=== PATIENT | female | born 1960 | race Caucasian/White ===

== ENCOUNTER → 2017-08-17 14:04 | Outpatient (CLI) | payer OTHER, SELFPAY ==
[2017-08-17 16:12] LABS: Absolute Lymphocyte Count 1.85 X10^3/ul (0.83-4.51); Absolute Neutrophil Count 4.6 X10^3/uL (2.0-7.7); Basophil# 0.08 X10^3/uL; Eosinophils% 7.7 % (0-5); Hematocrit 40.7 % (37-47); Hemoglobin 12.9 g/dl (12.0-15.0); Lymphocyte # 1.85 X10^3/ul (4.0); Lymphocyte % 23.9 % (19-41); Mean Corp Hgb Conc 31.7 g/gl (32-36); Mean Corpuscular Hgb 29.1 pg (27.0-32.0); Mean Corpuscular Volume 91.7 fL (81-99); Mean Platelet Vol. 11.1 fl (6.2-12.0); Monocyte% 7.7 % (0-10); Neutrophil # 4.61 X10^3/uL (2.7-7.7); Neutrophil % 59.6 % (47-70); Platelet Count 361 K/mm3 (150-450); RBC Distribution Width CV 13.4 % (11.6-14.6); Red Blood Count 4.44 M/mm3 (4.2-5.4); White Blood Count 7.8 K/mm3 (4.4-11.0)
[2017-08-17 16:13] LABS: POSITIVE COUNT NO; POSITIVE DIFFERENTIAL NO; POSITIVE MORPHOLOGY NO
[2017-08-17 16:35] LABS: AST(SGOT) 18 U/L (15-37); Alanine Aminotransfer ALT/SGPT 30 U/L (13-56); Albumin, Serum 4.1 g/dL (3.2-5.0); Alkaline Phosphatase 70 U/L (45-117); Anion Gap 7 (5-15); BUN 13 mg/dL (7-18); BUN/Creat Ratio 16.6 RATIO (10-20); Calcium,Total 8.9 mg/dL (8.5-10.1); Chloride 102 mmol/L (98-107); Creatinine, Serum 0.78 mg/dL (0.55-1.02); EST Glomerular Filtration Rate 80 mL/min (>60); Est Glom Filt Rate - Afr Amer 97 mL/min (>60); Globulin 4.2 g/dL (2.2-4.2); Glucose 85 mg/dL (74-106); Potassium 3.8 mmol/L (3.5-5.1); Protein, Total 8.3 g/dL (6.4-8.2); Sodium Level 138 mmol/L (136-145); Thyroid Stim Hormone (TSH) 2.31 uIU/mL (0.358-3.74)
[2017-08-19 11:31] LABS: Hep C Antibodies <0.1 s/co ratio (0.0-0.9)
== END ==
PROVIDERS: Family Provider Family Medicine Geriatric Medicine; PCP Family Medicine Geriatric Medicine; Visit Provider Family Medicine Geriatric Medicine
DX: Z00.00 Encounter for general adult medical examination without abnormal findings (principal)
CPT/HCPCS: 36415; 80053; 84443; 85025; 86803

== ENCOUNTER → 2018-02-28 10:09 | Outpatient (CLI) | payer SELFPAY ==
[2018-02-28 12:46] LABS: Absolute Lymphocyte Count 1.57 X10^3/ul (0.83-4.51); Absolute Neutrophil Count 4.2 X10^3/uL (2.0-7.7); Basophil# 0.07 X10^3/uL; Eosinophil# 0.41 X10^3/uL; Hematocrit 41.4 % (37-47); Hemoglobin 13.1 g/dl (12.0-15.0); Lymphocyte # 1.57 X10^3/ul (4.0); Lymphocyte % 23.1 % (19-41); Mean Corp Hgb Conc 31.6 g/gl (32-36); Mean Corpuscular Hgb 29.2 pg (27.0-32.0); Mean Corpuscular Volume 92.2 fL (81-99); Monocyte# 0.51 X10^3/uL; Monocyte% 7.5 % (0-10); Neutrophil # 4.24 X10^3/uL (2.7-7.7); Neutrophil % 62.4 % (47-70); POSITIVE COUNT NO; POSITIVE DIFFERENTIAL NO; POSITIVE MORPHOLOGY NO; Platelet Count 354 K/mm3 (150-450); RBC Distribution Width CV 13.4 % (11.6-14.6); RBC Distribution Width SD 44.8 fl (35.1-43.9); Red Blood Count 4.49 M/mm3 (4.2-5.4); White Blood Count 6.8 K/mm3 (4.4-11.0)
[2018-02-28 13:03] LABS: ALB/GLOB Ratio 0.9 RATIO (0.9-2.4); AST(SGOT) 20 U/L (15-37); Alanine Aminotransfer ALT/SGPT 36 U/L (13-56); Albumin, Serum 3.9 g/dL (3.2-5.0); Alkaline Phosphatase 69 U/L (45-117); Anion Gap 9 (5-15); BUN 13 mg/dL (7-18); BUN/Creat Ratio 17.3 RATIO (10-20); Calcium,Total 8.8 mg/dL (8.5-10.1); Chloride 102 mmol/L (98-107); Creatinine, Serum 0.75 mg/dL (0.55-1.02); EST Glomerular Filtration Rate 84 mL/min (>60); Est Glom Filt Rate - Afr Amer 102 mL/min (>60); Globulin 4.4 g/dL (2.2-4.2); Glucose 106 mg/dL (74-106); Potassium 3.7 mmol/L (3.5-5.1); Protein, Total 8.3 g/dL (6.4-8.2); Sodium Level 138 mmol/L (136-145); Thyroid Stim Hormone (TSH) 2.83 uIU/mL (0.358-3.74)
== END ==
PROVIDERS: Family Provider Family Medicine Geriatric Medicine; PCP Family Medicine Geriatric Medicine; Visit Provider Family Medicine Geriatric Medicine
DX: R53.83 Other fatigue (principal)
CPT/HCPCS: 36415; 80053; 84443; 85025

== ENCOUNTER → 2018-03-29 16:26 | Outpatient (CLI) | payer OTHER, SELFPAY ==
[2017-05-30 07:22] VITALS: BMI 34.4
== END ==
PROVIDERS: Family Provider Family Medicine Geriatric Medicine; PCP Family Medicine Geriatric Medicine; Referring Provider Family Medicine Geriatric Medicine; Visit Provider Family Medicine Geriatric Medicine
DX: R68.83 Chills (without fever) (principal)
CPT/HCPCS: 87633

== ENCOUNTER → 2018-09-05 15:31 | Outpatient (CLI) | payer OTHER, SELFPAY ==
[2017-05-30 07:22] VITALS: BMI 34.4
[2018-09-05 16:29] LABS: Absolute Lymphocyte Count 2.17 X10^3/ul (0.83-4.51); Absolute Neutrophil Count 3.5 X10^3/uL (2.0-7.7); Basophil# 0.11 X10^3/uL; Basophil% 1.6 % (0-1); Eosinophil# 0.46 X10^3/uL; Eosinophils% 6.8 % (0-5); Lymphocyte # 2.17 X10^3/ul (4.0); Lymphocyte % 32.1 % (19-41); Mean Corp Hgb Conc 32.5 g/gl (32-36); Mean Corpuscular Hgb 29.5 pg (27.0-32.0); Mean Corpuscular Volume 90.7 fL (81-99); Mean Platelet Vol. 10.8 fl (6.2-12.0); Monocyte# 0.55 X10^3/uL; Monocyte% 8.1 % (0-10); Neutrophil # 3.46 X10^3/uL (2.7-7.7); Neutrophil % 51.3 % (47-70); Platelet Count 335 K/mm3 (150-450); RBC Distribution Width CV 13.7 % (11.6-14.6); RBC Distribution Width SD 44.7 fl (35.1-43.9); Red Blood Count 4.41 M/mm3 (4.2-5.4); White Blood Count 6.8 K/mm3 (4.4-11.0)
[2018-09-05 16:39] LABS: POSITIVE COUNT NO; POSITIVE DIFFERENTIAL NO; POSITIVE MORPHOLOGY NO
[2018-09-05 17:20] LABS: AST(SGOT) 25 U/L (15-37); Alanine Aminotransfer ALT/SGPT 31 U/L (13-56); Alkaline Phosphatase 92 U/L (45-117); Anion Gap 10 (5-15); BUN 23 mg/dL (7-18); BUN/Creat Ratio 18.5 RATIO (10-20); Calcium,Total 8.9 mg/dL (8.5-10.1); Chloride 103 mmol/L (98-107); Creatinine, Serum 1.24 mg/dL (0.55-1.02); EST Glomerular Filtration Rate 47 mL/min (>60); Est Glom Filt Rate - Afr Amer 57 mL/min (>60); Glucose 88 mg/dL (74-106); Potassium 3.6 mmol/L (3.5-5.1); Sodium Level 140 mmol/L (136-145); Thyroid Stim Hormone (TSH) 3.02 uIU/mL (0.358-3.74)
== END ==
PROVIDERS: Family Provider Family Medicine Geriatric Medicine; PCP Family Medicine Geriatric Medicine; Visit Provider Family Medicine Geriatric Medicine
DX: R53.83 Other fatigue (principal)
CPT/HCPCS: 36415; 80053; 84443; 85025

== ENCOUNTER → 2019-03-06 14:26 | Outpatient (CLI) | payer OTHER, SELFPAY ==
[2017-05-30 07:22] VITALS: BMI 34.4
[2019-03-06 17:47] LABS: Absolute Lymphocyte Count 2.04 X10^3/uL (0.83-4.51); Absolute Neutrophil Count 4.2 X10^3/uL (2.0-7.7); Basophil% 1.4 % (0-1); Eosinophil# 0.45 X10^3/uL; Eosinophils% 6.1 % (0-5); Hematocrit 38.9 % (37-47); Hemoglobin 12.5 g/dL (12.0-15.0); Lymphocyte # 2.04 X10^3/ul (4.0); Lymphocyte % 27.8 % (19-41); Mean Corp Hgb Conc 32.1 g/dL (32-36); Mean Corpuscular Hgb 30.1 pg (27.0-32.0); Mean Corpuscular Volume 93.7 fL (81-99); Mean Platelet Vol. 11.2 fl (6.2-12.0); Monocyte# 0.53 X10^3/uL; Monocyte% 7.2 % (0-10); NRBC Flagged by Analyzer 0 % (0-5); Neutrophil % 57.4 % (47-70); Platelet Count 335 K/mm3 (150-450); RBC Distribution Width CV 12.5 % (11.6-14.6); RBC Distribution Width SD 43.4 fl (35.1-43.9); Red Blood Count 4.15 M/mm3 (4.2-5.4); White Blood Count 7.3 K/mm3 (4.4-11.0)
[2019-03-06 18:12] LABS: ALB/GLOB Ratio 0.9 RATIO (0.9-2.4); AST(SGOT) 22 U/L (15-37); Alanine Aminotransfer ALT/SGPT 31 U/L (13-56); Albumin, Serum 3.8 g/dL (3.2-5.0); Alkaline Phosphatase 79 U/L (45-117); Anion Gap 6 (5-15); BUN 17 mg/dL (7-18); BUN/Creat Ratio 22.2 RATIO (10-20); Chloride 104 mmol/L (98-107); Creatinine, Serum 0.77 mg/dL (0.55-1.02); EST Glomerular Filtration Rate 82 mL/min (>60); Est Glom Filt Rate - Afr Amer 100 mL/min (>60); Globulin 4.3 g/dL (2.2-4.2); Glucose 89 mg/dL (74-106); Potassium 3.5 mmol/L (3.5-5.1); Protein, Total 8.1 g/dL (6.4-8.2); Sodium Level 139 mmol/L (136-145); Thyroid Stim Hormone (TSH) 2.12 uIU/mL (0.358-3.74)
== END ==
PROVIDERS: Family Provider Family Medicine Geriatric Medicine; PCP Family Medicine Geriatric Medicine; Visit Provider Family Medicine Geriatric Medicine
DX: I10 Essential (primary) hypertension (principal)
CPT/HCPCS: 36415; 80053; 84443; 85025

== ENCOUNTER → 2019-03-23 16:10 | Outpatient (CLI) | payer OTHER, SELFPAY ==
[2017-05-30 07:22] VITALS: BMI 34.4
== END ==
PROVIDERS: Family Provider Family Medicine Geriatric Medicine; PCP Family Medicine Geriatric Medicine; Referring Provider Podiatrist; Visit Provider Podiatrist
DX: M67.472 Ganglion, left ankle and foot (principal)
CPT/HCPCS: 87070; 87075; 87205

== ENCOUNTER → 2019-05-23 14:48 | Outpatient (CLI) | payer OTHER, SELFPAY ==
[2017-05-30 07:22] VITALS: BMI 34.4
[2019-05-23 16:31] LABS: Absolute Lymphocyte Count 2.07 X10^3/uL (0.83-4.51); Absolute Neutrophil Count 5.9 X10^3/uL (2.0-7.7); Basophil% 1.1 % (0-1); Eosinophil# 0.32 X10^3/uL; Eosinophils% 3.6 % (0-5); Hemoglobin 13.5 g/dL (12.0-15.0); Lymphocyte # 2.07 X10^3/ul (4.0); Mean Corp Hgb Conc 32.1 g/dL (32-36); Mean Corpuscular Hgb 29.7 pg (27.0-32.0); Mean Corpuscular Volume 92.5 fL (81-99); Mean Platelet Vol. 10.4 fl (6.2-12.0); Monocyte# 0.56 X10^3/uL; Monocyte% 6.2 % (0-10); NRBC Flagged by Analyzer 0 % (0-5); Neutrophil # 5.94 X10^3/uL (2.7-7.7); Neutrophil % 65.9 % (47-70); Platelet Count 372 K/mm3 (150-450); RBC Distribution Width CV 12.8 % (11.6-14.6); RBC Distribution Width SD 43.5 fl (35.1-43.9); Red Blood Count 4.54 M/mm3 (4.2-5.4)
[2019-05-23 16:53] LABS: ALB/GLOB Ratio 0.9 RATIO (0.9-2.4); AST(SGOT) 19 U/L (15-37); Alanine Aminotransfer ALT/SGPT 33 U/L (13-56); Albumin, Serum 4.1 g/dL (3.2-5.0); Alkaline Phosphatase 77 U/L (45-117); Anion Gap 7 (5-15); BUN 17 mg/dL (7-18); BUN/Creat Ratio 23.1 RATIO (10-20); Calcium,Total 9.3 mg/dL (8.5-10.1); Chloride 108 mmol/L (98-107); Creatinine, Serum 0.74 mg/dL (0.55-1.02); EST Glomerular Filtration Rate 86 mL/min (>60); Est Glom Filt Rate - Afr Amer 104 mL/min (>60); Globulin 4.6 g/dL (2.2-4.2); Glucose 93 mg/dL (74-106); Potassium 3.7 mmol/L (3.5-5.1); Protein, Total 8.7 g/dL (6.4-8.2); Sodium Level 139 mmol/L (136-145); Thyroid Stim Hormone (TSH) 2.92 uIU/mL (0.358-3.74)
== END ==
PROVIDERS: Family Provider Family Medicine Geriatric Medicine; PCP Family Medicine Geriatric Medicine; Visit Provider Family Medicine Geriatric Medicine
DX: R53.83 Other fatigue (principal); N39.0 Urinary tract infection, site not specified
CPT/HCPCS: 36415; 80053; 84443; 85025; 87086; 87088

== ENCOUNTER → 2020-01-09 14:14 | Outpatient (CLI) | payer OTHER, SELFPAY ==
[2017-05-30 07:22] VITALS: BMI 34.4
[2020-01-09 16:08] LABS: Absolute Lymphocyte Count 2.27 X10^3/uL (0.83-4.51); Basophil# 0.08 X10^3/uL; Basophil% 1.1 % (0-1); Eosinophil# 0.31 X10^3/uL; Eosinophils% 4.4 % (0-5); Hematocrit 39.7 % (37-47); Hemoglobin 12.5 g/dL (12.0-15.0); Lymphocyte # 2.27 X10^3/ul (4.0); Lymphocyte % 32.2 % (19-41); Mean Corp Hgb Conc 31.5 g/dL (32-36); Mean Corpuscular Hgb 29.3 pg (27.0-32.0); Mean Corpuscular Volume 93.2 fL (81-99); Mean Platelet Vol. 10.6 fl (6.2-12.0); Monocyte# 0.42 X10^3/uL; Monocyte% 5.9 % (0-10); NRBC Flagged by Analyzer 0 % (0-5); Neutrophil # 3.97 X10^3/uL (2.7-7.7); Neutrophil % 56.3 % (47-70); Platelet Count 384 K/mm3 (150-450); RBC Distribution Width CV 12.8 % (11.6-14.6); RBC Distribution Width SD 43.8 fl (35.1-43.9); Red Blood Count 4.26 M/mm3 (4.2-5.4); White Blood Count 7.1 K/mm3 (4.4-11.0)
[2020-01-09 16:31] LABS: AST(SGOT) 21 U/L (15-37); Alanine Aminotransfer ALT/SGPT 24 U/L (13-56); Albumin, Serum 3.9 g/dL (3.2-5.0); Alkaline Phosphatase 68 U/L (45-117); Anion Gap 5 (5-15); BUN 15 mg/dL (7-18); BUN/Creat Ratio 20.2 RATIO (10-20); Calcium,Total 9.1 mg/dL (8.5-10.1); Chloride 104 mmol/L (98-107); Creatinine, Serum 0.74 mg/dL (0.55-1.02); EST Glomerular Filtration Rate 85 mL/min (>60); Est Glom Filt Rate - Afr Amer 103 mL/min (>60); Glucose 85 mg/dL (74-106); Protein, Total 7.9 g/dL (6.4-8.2); Sodium Level 140 mmol/L (136-145); Thyroid Stim Hormone (TSH) 1.44 uIU/mL (0.358-3.74)
== END ==
PROVIDERS: PCP Family Medicine Geriatric Medicine; Visit Provider Family Medicine Geriatric Medicine
DX: R53.83 Other fatigue (principal)
CPT/HCPCS: 36415; 80053; 84443; 85025

== ENCOUNTER → 2020-07-09 13:07 | Outpatient (CLI) | payer BC, SELFPAY ==
[2017-05-30 07:22] VITALS: BMI 34.4
[2020-07-09 16:22] LABS: Absolute Lymphocyte Count 2.04 X10^3/uL (0.83-4.51); Absolute Neutrophil Count 3.1 X10^3/uL (2.0-7.7); Basophil# 0.08 X10^3/uL; Basophil% 1.3 % (0-1); Eosinophil# 0.43 X10^3/uL; Eosinophils% 6.9 % (0-5); Hematocrit 39.9 % (37-47); Hemoglobin 12.6 g/dL (12.0-15.0); Lymphocyte # 2.04 X10^3/ul (4.0); Lymphocyte % 32.7 % (19-41); Mean Corp Hgb Conc 31.6 g/dL (32-36); Mean Corpuscular Hgb 29.9 pg (27.0-32.0); Mean Corpuscular Volume 94.5 fL (81-99); Monocyte# 0.56 X10^3/uL; NRBC Flagged by Analyzer 0 % (0-5); Neutrophil # 3.12 X10^3/uL (2.7-7.7); Neutrophil % 49.9 % (47-70); Platelet Count 354 K/mm3 (150-450); RBC Distribution Width CV 12.8 % (11.6-14.6); RBC Distribution Width SD 44.1 fl (35.1-43.9); Red Blood Count 4.22 M/mm3 (4.2-5.4); White Blood Count 6.2 K/mm3 (4.4-11.0)
[2020-07-09 16:41] LABS: ALB/GLOB Ratio 0.9 RATIO (0.9-2.4); AST(SGOT) 23 U/L (15-37); Alanine Aminotransfer ALT/SGPT 36 U/L (13-56); Albumin, Serum 3.8 g/dL (3.2-5.0); Alkaline Phosphatase 65 U/L (45-117); Anion Gap 7 (5-15); BUN 15 mg/dL (7-18); BUN/Creat Ratio 17.5 RATIO (10-20); Calcium,Total 8.9 mg/dL (8.5-10.1); Chloride 105 mmol/L (98-107); Creatinine, Serum 0.86 mg/dL (0.55-1.02); EST Glomerular Filtration Rate 72 mL/min (>60); Est Glom Filt Rate - Afr Amer 87 mL/min (>60); Globulin 4.2 g/dL (2.2-4.2); Glucose 83 mg/dL (74-106); Potassium 3.7 mmol/L (3.5-5.1); Sodium Level 139 mmol/L (136-145); Thyroid Stim Hormone (TSH) 2.63 uIU/mL (0.358-3.74)
== END ==
PROVIDERS: PCP Family Medicine Geriatric Medicine; Visit Provider Family Medicine Geriatric Medicine
DX: I10 Essential (primary) hypertension (principal)
CPT/HCPCS: 36415; 80053; 84443; 85025

== ENCOUNTER → 2020-07-22 15:24 | Outpatient (CLI) | payer BC, SELFPAY ==
[2017-05-30 07:22] VITALS: BMI 34.4
== END ==
PROVIDERS: PCP Family Medicine Geriatric Medicine; Visit Provider Family Medicine Geriatric Medicine
DX: N39.0 Urinary tract infection, site not specified (principal)
CPT/HCPCS: 87077; 87086; 87088; 87186

== ENCOUNTER 2020-12-05 21:49 | Emergency (ER) | payer BC, SELFPAY ==
[2020-12-05 21:54] VITALS: BP 100/50; PULSE 64; RESP 20; TEMP 36.5; O2SAT 100; BMI 31.1
--- NOTE | 2020-12-05 21:58 | EKG12_ITS ---
Test Reason : SYNCOPE Blood Pressure : / mmHG Vent. Rate : 062 BPM Atrial Rate : 062 BPM P-R Int : 186 ms QRS Dur : 098 ms QT Int : 462 ms P-R-T Axes : 053 049 055 degrees QTc Int : 468 ms Normal sinus rhythm Normal ECG Confirmed by MANDY VALENZUELA, RYAN ([id number]), map editor LENNY KENDRICK ([id number]) on 12/11/2020 1:08:58 PM Referred By: HAN/BENI Confirmed By:RYAN GALVAN MD
[2020-12-05 22:18] LABS: Absolute Lymphocyte Count 4.38 X10^3/uL (0.83-4.51); Absolute Neutrophil Count 4.3 X10^3/uL (2.0-7.7); Basophil# 0.12 X10^3/uL; Basophil% 1.2 % (0-1); Eosinophil# 0.57 X10^3/uL; Eosinophils% 5.7 % (0-5); Hematocrit 38.1 % (37-47); Hemoglobin 12.3 g/dL (12.0-15.0); Lymphocyte # 4.38 X10^3/ul (0.83-4.51); Lymphocyte % 43.5 % (19-41); Mean Corp Hgb Conc 32.3 g/dL (32-36); Mean Corpuscular Hgb 29.9 pg (27.0-32.0); Mean Corpuscular Volume 92.7 fL (81-99); Mean Platelet Vol. 10.4 fl (6.2-12.0); Monocyte% 6.9 % (0-10); NRBC Flagged by Analyzer 0 % (0-5); Neutrophil # 4.27 X10^3/uL (2.7-7.7); Neutrophil % 42.3 % (47-70); Platelet Count 422 K/mm3 (150-450); RBC Distribution Width CV 12.6 % (11.6-14.6); RBC Distribution Width SD 43.1 fl (35.1-43.9); Red Blood Count 4.11 M/mm3 (4.2-5.4); White Blood Count 10.1 K/mm3 (4.4-11.0)
[2020-12-05 22:40] LABS: Anion Gap 7 (5-15); BUN 18 mg/dL (7-18); BUN/Creat Ratio 21.4 RATIO (10-20); Calcium,Total 8.6 mg/dL (8.5-10.1); Chloride 106 mmol/L (98-107); Creatinine, Serum 0.84 mg/dL (0.55-1.02); EST Glomerular Filtration Rate 73 mL/min (>60); Est Glom Filt Rate - Afr Amer 89 mL/min (>60); Glucose 100 mg/dL (74-106); Potassium 3.6 mmol/L (3.5-5.1); Sodium Level 139 mmol/L (136-145); Troponin-I HS 6.6 pg/mL (3.0-53.7)
--- NOTE | 2020-12-05 22:49 | CT_ITS ---
STUDY: CT BRAIN WITHOUT CONTRAST REASON FOR EXAM: Female, 60 years old. Syncope. RADIATION DOSAGE (If Supplied By Facility): CTDIvol = ( 44.99 ) mGy, DLP = ( 796.11 ) mGycm TECHNIQUE: Transaxial CT imaging of the brain was performed without administration of intravenous contrast material. Individualized dose optimization techniques were used for this CT. COMPARISON: No relevant priors. FINDINGS: Normal soft tissue structures. Normal calvarium. Normal size ventricles and extra-axial spaces for the patient''s age. Normal white matter tracts of the cerebral hemispheres. Normal basal ganglia and thalami. Normal brainstem. Normal cerebellum. There is no intracranial hemorrhage. There are no findings of an acute ischemic infarction. Normal visualized paranasal sinuses. CT/Brain/Head without Contrast IMPRESSION: Normal unenhanced CT scan of the brain. Electronically Signed: Valdo Dorsey DO at 23:20 EDT Tel [phone], Service support ,
--- NOTE | 2020-12-05 22:58 | EX.ED.DYSGE1 ---
HPI History of Present Illness Chief Complaint: Syncope Informant: patient and spouse/S.O. Onset/Context/Timing Onset: Today Context: Sudden Onset Timing: Intermittent and Lasts (Approximately 5 minutes) Quality: Lightheaded, Sweaty Location: Generalized Worsened by: Nothing Relieved by: Nothing Narrative Narrative: Patient presents with a syncopal episode that occurred today. Patient had 2 episodes. Spouse states that the episodes lasted approximately 5 minutes. Patient states she was sitting and felt lightheaded and got sweaty. Patient states that she felt like she stood up too quickly. Patient states nothing makes it worse and nothing makes it better. Patient mitts to drinking alcohol tonight. Patient denies any headaches. Patient denies any chest pain or palpitations. Patient admits to nausea but denies any vomiting. Patient denies any shortness of breath. [facility] Medical History Hypothyroidism Kidney stone Home Medications levothyroxine 50 mcg PO DAILY 02/20/14 [History Last Taken 08/11/16 05:00] paroxetine HCl 10 mg PO DAILY 12/05/20 [History Last Taken Unknown] Allergy/AdvReac Type Severity Reaction Status Date / Time No Known Allergies Allergy Verified 12/05/20 21:58 Surgical History H/O tubal ligation Hx of cholecystectomy Social History Smoking Status: Current every day smoker tobacco type: e-cigarettes ROS ROS ED Constitutional Constitutional ED: Denies chills or fever(s) Eyes Eyes: Denies blurry vision or change in vision ENT ENT ED: Denies rhinorrhea or sore throat Cardiovascular Cardiovascular: Denies chest pain or palpitations Respiratory/Chest Respiratory/Chest: Denies cough or dyspnea Gastrointestinal Gastrointestinal: Reports nausea; Denies vomiting Genitourinary Genitourinary ED: Denies dysuria or hematuria Musculoskeletal Musculoskeletal: Denies back pain or neck pain Integumentary Reports rash; Denies abscess Neurologic Neurologic: Denies headache(s) or weakness Allergic/Immunologic Allergic/Immunologic ED: Denies mouth swelling or urticaria EXAM Physical Exam Const Vital Signs: 12/05/20 21:54 12/05/20 23:25 12/06/20 00:07 Temperature 97.7 F L Temperature Source Temporal Pulse Rate 64 69 Respiratory Rate 20 H 16 Blood Pressure 100/50 L 112/63 Blood Pressure Mean 66 79 Pulse Ox 100 98 Oxygen Delivery Method Room Air Room Air Room Air Positive well nourished and well developed General Appearance ED: well developed HEENT Reports moist mucous membranes Neck supple and no JVD Resp normal respiratory effort and clear to auscultation bilaterally Cardio regular rate, regular rhythm and no murmurs GI normal to inspection, nondistended, normoactive bowel sounds and non-tender Palpation: soft Extremity normal to inspection General Extremety ED: Negative for edema or tenderness General Extremity: Negative for edema Neuro oriented x3, CN's II-XII intact bilaterally and no sensory deficits noted Sensorium / Orientation: alert Motor Exam: strength 5/5 throughout Psych mental status grossly normal Skin no rashes or lesions noted MDM MDM MDM Narrative Medical decision making narrative: Patient was given IV fluids. EKG was obtained. On my interpretation, it showed a normal sinus rhythm with a rate of 62. TN interval, QRS interval, and QTc intervals were all normal. [place] was normal. There are no acute ST or T wave changes. CBC and basic metabolic profile were within normal limits. Initial high-sensitivity troponin was normal. 2-hour repeat high-sensitivity troponin was normal. Serum alcohol level was normal. CT scan of the brain was obtained. There is no acute intracranial abnormality. This was interpreted by the radiologist and reviewed by myself. Patient feels better on reevaluation. Patient was instructed to drink plenty of fluids. Patient was instructed to follow-up with her primary care physician in 5 to 7 days. Patient was instructed return if worse in any way. Patient understood and was agreeable with the plan. All questions were answered. Lab Data Attestation: I reviewed the patient's lab results. Labs: Laboratory Results - last 24 hr 12/05/20 12/05/20 12/05/20 21:38 21:38 23:18 WBC 10.1 RBC 4.11 L Hgb 12.3 Hct 38.1 MCV 92.7 MCH 29.9 MCHC 32.3 RDW Std Deviation 43.1 RDW Coeff of Kellee 12.6 Plt Count 422 MPV 10.4 Immature Gran % (Auto) 0.400 Neut % (Auto) 42.3 L Lymph % (Auto) 43.5 H [place] % (Auto) 6.9 Eos % (Auto) 5.7 H Baso % (Auto) 1.2 H Absolute Neuts (auto) 4.3 Absolute Lymphs (auto) 4.38 Nucleated RBC % 0 Sodium 139 Potassium 3.6 Chloride 106 Carbon Dioxide 26.0 Anion Gap 7 BUN 18 Creatinine 0.84 Estim Creat Clear Calc 61.50 Est GFR (MDRD) Af Amer 89 Est GFR (MDRD) Non-Af 73 BUN/Creatinine Ratio 21.4 H Glucose 100 Calcium 8.6 Troponin I High Sens 6.6 Ethyl Alcohol 8.0 12/06/20 00:05 WBC RBC Hgb Hct MCV MCH MCHC RDW Std Deviation RDW Coeff of Kellee Plt Count MPV Immature Gran % (Auto) Neut % (Auto) Lymph % (Auto) [place] % (Auto) Eos % (Auto) Baso % (Auto) Absolute Neuts (auto) Absolute Lymphs (auto) Nucleated RBC % Sodium Potassium Chloride Carbon Dioxide Anion Gap BUN Creatinine Estim Creat Clear Calc Est GFR (MDRD) Af Amer Est GFR (MDRD) Non-Af BUN/Creatinine Ratio Glucose Calcium Troponin I High Sens 6.5 Ethyl Alcohol Radiography Diagnostic Testing: Radiology Impression Brain CT 12/05/20 22:49 IMPRESSION: Normal unenhanced CT scan of the brain. Electronically Signed: Valdo LaurenDO william at 23:20 EDT Tel [phone], Service support , EKG Initial EKG: Attestation: I personally reviewed and interpreted this EKG as follows: Interpretation: Sinus Rhythm (62) and No Acute Injury Pattern Prior EKG tracings: not available for review Discharge Plan Triage Chief Complaint: Syncope ED Provider: Mike Leo Dx/Rx/DC Orders Clinical Impression: Syncope and collapse Instructions: ED Fainting, Uncertain Cause Prescriptions: No Action levothyroxine 25 MCG tablet 50 mcg PO DAILY RF: 0 paroxetine HCl 20 mg tablet 10 mg PO DAILY RF: 0 Primary Care Provider: Siva Torres Chi Referrals: Siva Torres Chi, MD [Primary Care Provider] - 3-5 Days Disposition Disposition: Home, Self Care
[2020-12-05] MEDS: 0.9% Normal Saline 1,000 ML 1000 ML IV (23:26)
[2020-12-06 00:07] VITALS: BP 112/63; PULSE 69; RESP 16; O2SAT 98
[2020-12-06 00:27] LABS: Troponin-I HS 6.5 pg/mL (3.0-53.7)
== END 2020-12-06 01:44 | disposition home or self-care (01) ==
PROVIDERS: Emergency Provider Emergency Medicine; PCP Family Medicine Geriatric Medicine
DX: R55 Syncope and collapse (principal); E03.9 Hypothyroidism, unspecified; Z79.899 Other long term (current) drug therapy
CPT/HCPCS: 36415; 70450; 80048; 82077; 84484; 85025; 93005; 96360; 99285; A4216

== ENCOUNTER → 2021-01-28 15:48 | Outpatient (CLI) | payer BC, SELFPAY ==
[2021-01-28 17:18] LABS: Absolute Lymphocyte Count 2.37 X10^3/uL (0.83-4.51); Absolute Neutrophil Count 6.2 X10^3/uL (2.0-7.7); Basophil# 0.09 X10^3/uL; Basophil% 0.9 % (0-1); Eosinophils% 5.1 % (0-5); Hematocrit 40.3 % (37-47); Hemoglobin 12.8 g/dL (12.0-15.0); Lymphocyte # 2.37 X10^3/ul (0.83-4.51); Lymphocyte % 24.1 % (19-41); Mean Corp Hgb Conc 31.8 g/dL (32-36); Mean Corpuscular Hgb 29.9 pg (27.0-32.0); Mean Corpuscular Volume 94.2 fL (81-99); Mean Platelet Vol. 10.5 fl (6.2-12.0); Monocyte# 0.65 X10^3/uL; Monocyte% 6.6 % (0-10); NRBC Flagged by Analyzer 0 % (0-5); Neutrophil # 6.18 X10^3/uL (2.7-7.7); Platelet Count 382 K/mm3 (150-450); RBC Distribution Width CV 12.5 % (11.6-14.6); RBC Distribution Width SD 43.3 fl (35.1-43.9); Red Blood Count 4.28 M/mm3 (4.2-5.4); White Blood Count 9.8 K/mm3 (4.4-11.0)
[2021-01-28 17:40] LABS: ALB/GLOB Ratio 0.8 RATIO (0.9-2.4); AST(SGOT) 25 U/L (15-37); Alanine Aminotransfer ALT/SGPT 31 U/L (13-56); Albumin, Serum 3.8 g/dL (3.2-5.0); Alkaline Phosphatase 83 U/L (45-117); Anion Gap 8 (5-15); BUN 17 mg/dL (7-18); BUN/Creat Ratio 21.3 RATIO (10-20); Calcium,Total 8.7 mg/dL (8.5-10.1); Chloride 103 mmol/L (98-107); EST Glomerular Filtration Rate 78 mL/min (>60); Est Glom Filt Rate - Afr Amer 94 mL/min (>60); Globulin 4.9 g/dL (2.2-4.2); Glucose 110 mg/dL (74-106); Potassium 3.7 mmol/L (3.5-5.1); Protein, Total 8.7 g/dL (6.4-8.2); Sodium Level 135 mmol/L (136-145)
== END ==
PROVIDERS: PCP Family Medicine Geriatric Medicine; Visit Provider Family Medicine Geriatric Medicine
DX: I10 Essential (primary) hypertension (principal)
CPT/HCPCS: 36415; 80053; 84443; 85025

== ENCOUNTER → 2021-02-04 10:28 | Outpatient (CLI) | payer BC, SELFPAY ==
--- NOTE | 2021-02-04 10:29 | US_ITS ---
STUDY: THYROID ULTRASOUND REASON FOR EXAM: Female, 60 years old. NODULE TECHNIQUE: Ultrasound evaluation of the thyroid was performed with real-time and static reese-scale imaging. COMPARISON: None. FINDINGS: RIGHT LOBE: The right lobe of the thyroid gland is enlarged and measures 6.7 cm x 4.3 cm x 2.5 cm. There is a heterogeneous echotexture. There are no demonstrated solid, cystic or complex lesions. LEFT LOBE: The left lobe of the thyroid gland is enlarged and measures 5.3 cm x 2.4 cm x 2.1 cm. There is a heterogeneous echotexture. There is a 6 mm x 6 mm x 6 mm hypoechoic solid nodule in the lateral midportion of the left lobe. ISTHMUS: The isthmus measures 3 mm. The regional lymph nodes are normal. US/Thyroid IMPRESSION: Thyroid enlargement more prominent on the right side. 6 mm x 6 mm x 6 mm hypoechoic solid nodule in the mid lateral aspect of the left lobe. Electronically Signed: Blake Clemente MD at 12:55 EDT , Service support ,
== END ==
PROVIDERS: PCP Family Medicine Geriatric Medicine; Referring Provider Family Medicine Geriatric Medicine; Visit Provider Family Medicine Geriatric Medicine
DX: E04.1 Nontoxic single thyroid nodule (principal)
CPT/HCPCS: 76536

== ENCOUNTER 2021-03-03 05:32 | Day surgery (SDC) | payer BC, SELFPAY ==
[2021-03-03] VITALS (8 sets, daily range): BP systolic 103–145; BP diastolic 61–91; PULSE 69–75; RESP 16; TEMP 36.2–36.7; O2SAT 87–100; BMI 31.3
--- NOTE | 2021-03-03 05:57 | HP.PCM_ITS ---
History and Physical Date of Admission: 03/03/21 Radiology Technician Required: No Is patient in pain?: No Allergies No Known Allergies Allergy (Verified 02/16/21 14:48) Medications levothyroxine 50 mcg PO DAILY 02/20/14 [History Confirmed 02/16/21] paroxetine HCl 10 mg PO DAILY 12/05/20 [History Confirmed 02/16/21] PFSH Medical History Hypothyroidism Kidney stone Surgical History H/O tubal ligation Hx of cholecystectomy Family History (Updated 02/16/21 @ 14:47 by Tracy Cochran) Mother Diabetes Hypertension Brother Diabetes Hypertension Social History (Updated 02/16/21 @ 14:47 by Tracy Cochran) Smoking Status: Current every day smoker tobacco type: e-cigarettes alcohol intake: current HPI HPI HPI: BENI GUNN, is a 60 F who presents to the office today for surgical consultation regarding her thyroid nodule. The patient is being referred by Dr. Torres and a written copy of my surgical consult recommendations will return to him. The thyroid ultrasound report of 02/04/2021 as noted below does not provide a Ti RADS grading. On my review I find it to be a at most TI-RADS 4. FNA is not indicated as it is not greater than 1.5 cm. It is suggested that follow-up is not indicated as it is not greater than 1 cm. As of January 28, 2021 TSH was 3.4 with high normal being 3.7. The patient is on levothyroxine at 50 mcg daily. It is also of note that the patient has a personal history of colon polyps. She states her previous one was 4 years ago and it was recommended to her because of the polyp at that time that she has a follow-up in [address] Dueñas has returned to the clinic and she is interested in pursuing that procedure here at the [facility]. 02/04/2021 STUDY: THYROID ULTRASOUND REASON FOR EXAM: Female, 60 years old. NODULE TECHNIQUE: Ultrasound evaluation of the thyroid was performed with real-time and static reese-scale imaging. COMPARISON: None. FINDINGS: RIGHT LOBE: The right lobe of the thyroid gland is enlarged and measures 6.7 cm x 4.3 cm x 2.5 cm. There is a heterogeneous echotexture. There are no demonstrated solid, cystic or complex lesions. LEFT LOBE: The left lobe of the thyroid gland is enlarged and measures 5.3 cm x 2.4 cm x 2.1 cm. There is a heterogeneous echotexture. There is a 6 mm x 6 mm x 6 mm hypoechoic solid nodule in the lateral midportion of the left lobe. ISTHMUS: The isthmus measures 3 mm. The regional lymph nodes are normal. US/Thyroid IMPRESSION: Thyroid enlargement more prominent on the right side. 6 mm x 6 mm x 6 mm hypoechoic solid nodule in the mid lateral aspect of the left lobe. Electronically Signed: Blake Clemente MD at 12:55 EDT , Service support , ROS General General: No weight change, appetite, fatigue, colon cancer, breast cancer or weakness HEENT HEENT: Yes eye injury, eye surgery and swollen glands; No difficulty swallowing or hoarseness Endo Endocrine: Yes thyroid disease; No diabetes mellitus, thyroid cancer, Hair loss, heat intolerance or cold intolerance Skin Skin: No rash or changing moles Breast Breast: No left breast lump, right breast lump, nipple discharge, breast pain, abnormal mammogram, abnormal US or breast enlargement Musc Musculoskeletal: No back problems, arthritis, rheumatoid arthritis, gout or joint pain Cardio Cardiovascular: No murmur, pacemaker, heart disease, atrial fibrillation, high blood pressure, heart attack, heart stent, palpitations, shortness of breat with exertion or chest pain Psych Psychiatric: Yes anxiety; No depression or hearing voices Resp Respiratory: No shortness of breath, No sleep apnea, No cough, No COPD, No asthma, No emphysema and No wheezing Gastro Gastrointestinal: No abdominal pain, No nausea or vomiting, No diarrhea, No constipation, No blood in stool, No acid reflux, No hemorrhoids, No ulcers, Yes gallbladder problem and No black,tarry stools Oz Hematologic: No blood thinners, No blood disorders, No bleeding, No anemia and No blood clots Neuro Neurologic: No system reviewed and no additional complaints, except as documented, No as per HPI, No abnormal gait, No abnormal hearing, No abnormal movements, No abnormal speech, No behavioral changes, No burning sensations, No confusion, No convulsions, No disequilibrium, No dizziness, No localized weakness, No frequent falls, No headache(s), No lack of coordination, No loss of vision, No memory loss, No numbness, No other visual disturbances, No radicular pain, No restless legs, No sensory deficit, No syncope, No tingling, No tremor(s), No weakness and No other Exam Const General: cooperative, comfortable and no acute distress Nutritional Appearance: overweight Orientation: alert and awake Eyes General: appearance normal, both eyes and all related structures Neck Other: Thyroid is enlarged right slightly more than the left. Nontender. Moves with swallowing. No cervical adenopathy. Carotids are 3+ bilateral. Resp Effort & Inspection: normal respiratory effort Auscultation: clear to auscultation bilaterally Cardio Rate: regular rate GI Palpation: soft and no hepatosplenomegaly Skin General: no rashes or lesions noted Neuro General: patient alert and patient awake Extrem General: no calf tenderness Psych Appearance: grossly normal Assessment and Plan Assessment and Plan (1) Personal history of colonic polyps: Status: Acute (2) Left thyroid nodule: Status: Acute Plan - Dr. Alexsander Wei MD: The patient's left thyroid nodule on my account has at most a TI-RADS 4 rating and is less than a centimeter so technically would not require follow-up. Clearly does not require fine-needle aspiration this time. At most I would recommend thyroid ultrasound at 3years. The patient has thyromegaly and this could be utilized to follow that as well. Regarding the patient's personal history of colon polyp it was recommended to her that she have follow-up in 3 years and she now is at least 4 years since t hat time. This was a tubulovillous adenoma of the rectum. I do recommend proceeding with a colonoscopy with possible biopsy or polypectomy as indicated. She is aware of the technique, benefit, risk, alternatives. We will schedule procedure at her discretion. I appreciate the opportunity of assisting with the surgical care Copy: Dr. Siva Wei M.D., F.A.C.S. Insert H&P no changes. Plan to proceed with colonoscopy today because of a previous history of tubulovillous adenoma of the rectum. The patient is aware of the technique, benefit, risk, alternatives. We will proceed as noted. Alexsander Wei M.D., F.A.C.S.
[2021-03-03] MEDS: Lactated Ringers 1,000 ML 100 ML IV (06:07)
--- NOTE | 2021-03-03 06:30 | COLBX_PTH ---
PATIENT: BENI GUNN LOC: EN U#:[id number] AGE/SX: 60/F ROOM: RE03/03/[address]: Dr. Alexsander Wei MD : 1960 BED: DIS: 03/03/2021 SPEC #: [id number] RECD: 03/03/21 09:48 STATUS: FIORDALIZA ELLIOTT #: [id number] DIONE: 03/03/21 06:[address]: Alexsander Wei DEPT: SURGICAL PATHOLOGY RECD BY: Page Berg ENTERED: 03/03/21 10:47 SP TYPE: COLON BX OTHR DR: Dr. Siva Torres MD Tissues: Sigmoid colon biopsy Procedures: Surgery Specimen Level IV HEADER OPERATION: Colonoscopy (MOD) PRE-OP DIAGNOSIS: History of colonic polyps TISSUE SUBMITTED: Mid sigmoid polyp biopsy MICROSCOPIC DIAGNOSIS Mid sigmoid polyp, biopsy: Fragments of colonic mucosa with focal hyperplastic changes. SJ:henry 03/04/2021 MICROSCOPIC DESCRIPTION Slides are reviewed. GROSS DESCRIPTION Received in fixative is one container labeled with the patient's name and designated mid sigmoid polyp biopsy. The specimen consists of multiple irregular fragments of light herzog soft tissue that in aggregate measure 1 x 0.2 x 0.1 cm. The specimen is totally submitted in one cassette. / SJ:henry 03/03/21 TC:5 CPT: 87621
--- NOTE | 2021-03-03 06:53 | OP.COLON_ITS ---
Patient Name: Keyla Schaffer Procedure Date: 03/03/2021 6:17 AM Date of : 1960 Age: 60 Procedure: Colonoscopy Indications: High risk colon cancer surveillance: Personal history of colonic polyps Providers: Alexsander Wei MD Referring MD: Alexsander Wei MD Medicines: Midazolam 4 mg IV, Meperidine 100 mg IV Patient Profile: Last Colonoscopy: 2017. Complications: No immediate complications. Procedure: Pre-Anesthesia Assessment: - Prior to the procedure, a History and Physical was performed, and patient medications and allergies were reviewed. The patient's tolerance of previous anesthesia was also reviewed. The risks and benefits of the procedure and the sedation options and risks were discussed with the patient. All questions were answered, and informed consent was obtained. Prior Anticoagulants: The patient has taken no previous anticoagulant or antiplatelet agents. ASA Grade Assessment: II - A patient with mild systemic disease. After reviewing the risks and benefits, the patient was deemed in satisfactory condition to undergo the procedure. After I obtained informed consent, the scope was passed under direct vision. Throughout the procedure, the patient's blood pressure, pulse, and oxygen saturations were monitored continuously. The pediatric colonoscope was introduced through the anus and advanced to the cecum, identified by appendiceal orifice and ileocecal valve. The colonoscopy was performed without difficulty. The patient tolerated the procedure well. The quality of the bowel preparation was fair. The ileocecal valve and the appendiceal orifice were photographed. Moderate Sedation: Moderate (conscious) sedation was personally administered by the endoscopist. The following parameters were monitored: oxygen saturation, heart rate, blood pressure, and response to care. Total physician intraservice time was 15 minutes. Scope In: 6:34:48 AM Scope Out: 6:47:18 AM Total Procedure Duration Time 0 hours 12 minutes 30 seconds Findings: The digital rectal exam findings include non-thrombosed external hemorrhoids, non-thrombosed internal hemorrhoids and internal hemorrhoids that prolapse with straining, but spontaneously regress to the resting position (Grade II). A 5 mm polyp was found in the mid sigmoid colon. The polyp was sessile. The polyp was removed with a cold biopsy forceps. Resection and retrieval were complete. Multiple diverticula were found in the sigmoid colon and descending colon. Impression: - Preparation of the colon was fair. - Non-thrombosed external hemorrhoids, non-thrombosed internal hemorrhoids and internal hemorrhoids that prolapse with straining, but spontaneously regress to the resting position (Grade II) found on digital rectal exam. - One 5 mm polyp in the mid sigmoid colon, removed with a cold biopsy forceps. Resected and retrieved. - Diverticulosis in the sigmoid colon and in the descending colon. Recommendation: - Discharge patient to home. - Resume previous diet. - Continue present medications. - Repeat colonoscopy in 5 years for surveillance based on pathology results. - Telephone my office for pathology results in 1 week. Procedure Code(s): --- Professional --- 59202, Colonoscopy, flexible; with biopsy, single or multiple 31624, 59, Moderate sedation services provided by the same physician or other qualified health critical care educator performing the diagnostic or therapeutic service that the sedation supports, requiring the presence of an independent trained observer to assist in the monitoring of the patient's level of consciousness and physiological status; initial 15 minutes of intraservice time, patient age 5 years or older Diagnosis Code(s): --- Professional --- Z86.010, Personal history of colonic polyps K64.1, Second degree hemorrhoids K64.4, Residual hemorrhoidal skin tags D12.5, Benign neoplasm of sigmoid colon K57.30, Diverticulosis of large intestine without perforation or abscess without bleeding CPT copyright 2017 [employer] [place] [employer]. All rights reserved. The codes documented in this report are preliminary and upon senior product manager review may be revised to meet current compliance requirements. Alexsander Wei MD 03/03/2021 6:53:37 AM This report has been signed electronically. Number of Addenda: 0 Note Initiated On: 03/03/2021 6:17 AM
--- NOTE | 2021-03-03 06:54 | OP.CCLET_ITS ---
03/03/2021 Siva Torres MD [address] [place] [address] Re : Colonoscopy procedure for Keyla Schaffer Dear Dr. Torres This procedure was performed on Wednesday, March 03, 2021. My impressions and recommendations are as follows: Impressions : - Preparation of the colon was fair. - Non-thrombosed external hemorrhoids, non-thrombosed internal hemorrhoids and internal hemorrhoids that prolapse with straining, but spontaneously regress to the resting position (Grade II) found on digital rectal exam. - One 5 mm polyp in the mid sigmoid colon, removed with a cold biopsy forceps. Resected and retrieved. - Diverticulosis in the sigmoid colon and in the descending colon. Recommendations : - Discharge patient to home. - Resume previous diet. - Continue present medications. - Repeat colonoscopy in 5 years for surveillance based on pathology results. - Telephone my office for pathology results in 1 week. My findings are described in the full procedure note, which is enclosed. If I can be of further assistance, please feel free to contact me at Doctor phone number(s): Work: . Sincerely, Alexsander Wei MD 03/03/2021 6:53:37 AM This report has been signed electronically.
== END 2021-03-03 07:48 ==
LOC: EN 05:32 → AC 05:33
PROVIDERS: PCP Family Medicine Geriatric Medicine; Referring Provider Surgery; Visit Provider Surgery
PROC: 0DJD8ZZ Inspection of Lower Intestinal Tract, Via Natural or Artificial Opening Endoscopic (ICD-10-PCS; CPT 45378; principal; 2021-03-03 06:25)
DX: Z12.11 Encounter for screening for malignant neoplasm of colon (principal); K63.5 Polyp of colon; K57.30 Diverticulosis of large intestine without perforation or abscess without bleeding; K64.1 Second degree hemorrhoids; K64.4 Residual hemorrhoidal skin tags; Z20.822 Contact with and (suspected) exposure to COVID-19; E04.1 Nontoxic single thyroid nodule; E03.9 Hypothyroidism, unspecified; F17.290 Nicotine dependence, other tobacco product, uncomplicated; Z79.890 Hormone replacement therapy; Z79.899 Other long term (current) drug therapy; Z86.010 Personal history of colon polyps
CPT/HCPCS: 45380; 87426; 88305; 99152; 99153; C9803; J7120

== ENCOUNTER 2021-08-04 13:15 | Outpatient (CLI) | payer OTHER, SELFPAY ==
[2021-08-04 17:26] LABS: Absolute Lymphocyte Count 2.56 X10^3/uL (0.83-4.51); Absolute Neutrophil Count 3.4 X10^3/uL (2.0-7.7); Basophil% 1.4 % (0-1); Eosinophil# 0.56 X10^3/uL; Eosinophils% 7.6 % (0-5); Hematocrit 40.5 % (37-47); Hemoglobin 13.7 g/dL (12.0-15.0); Lymphocyte # 2.56 X10^3/ul (0.83-4.51); Lymphocyte % 34.8 % (19-41); Mean Corp Hgb Conc 33.8 g/dL (32-36); Mean Corpuscular Hgb 31.1 pg (27.0-32.0); Mean Corpuscular Volume 91.8 fL (81-99); Monocyte# 0.68 X10^3/uL; Monocyte% 9.3 % (0-10); NRBC Flagged by Analyzer 0 % (0-5); Neutrophil # 3.43 X10^3/uL (2.7-7.7); Neutrophil % 46.6 % (47-70); Platelet Count 341 K/mm3 (150-450); RBC Distribution Width CV 12.9 % (11.6-14.6); RBC Distribution Width SD 43.8 fl (35.1-43.9); Red Blood Count 4.41 M/mm3 (4.2-5.4); White Blood Count 7.4 K/mm3 (4.4-11.0)
[2021-08-04 17:46] LABS: Vitamin D,25 Hydroxy 40.1 ng/mL
[2021-08-04 17:54] LABS: ALB/GLOB Ratio 1.1 RATIO (0.9-2.4); AST(SGOT) 22 U/L (15-37); Alanine Aminotransfer ALT/SGPT 32 U/L (13-56); Albumin, Serum 4.3 g/dL (3.2-5.0); Alkaline Phosphatase 72 U/L (45-117); Anion Gap 6 (5-15); BUN 20 mg/dL (7-18); BUN/Creat Ratio 27.7 RATIO (10-20); Calcium,Total 9.2 mg/dL (8.5-10.1); Chloride 104 mmol/L (98-107); Creatinine, Serum 0.72 mg/dL (0.55-1.02); EST Glomerular Filtration Rate 87 mL/min (>60); Est Glom Filt Rate - Afr Amer 106 mL/min (>60); Glucose 87 mg/dL (74-106); Potassium 3.9 mmol/L (3.5-5.1); Protein, Total 8.3 g/dL (6.4-8.2); Sodium Level 137 mmol/L (136-145); Thyroid Stim Hormone (TSH) 3.06 uIU/mL (0.358-3.74)
== END 2021-08-04 23:59 | disposition home or self-care (01) ==
PROVIDERS: PCP Family Medicine Geriatric Medicine; Visit Provider Family Medicine Geriatric Medicine
DX: E55.9 Vitamin D deficiency, unspecified (principal); R53.83 Other fatigue
CPT/HCPCS: 36415; 80053; 82306; 84443; 85025

== ENCOUNTER → 2021-08-25 | Outpatient (CLI) | payer OTHER, SELFPAY ==
--- NOTE | 2021-08-25 13:15 | RAD_ITS ---
INDICATION: RADICULOPATHY, CERVICAL REGION EXAMINATION/TECHNIQUE: X-RAY - XR Spine Cervical 2 or 3 Views COMPARISON: None. FINDINGS: Straightening of alignment of the columns of the cervical spine visualized. No evidence of spondylolisthesis is seen. Unremarkable alignment of the lateral masses of C1 with C2. Multilevel degenerative endplate changes seen, no evidence of compression deformity of the cervical vertebral bodies. Slightly decreased intervertebral disc height visualized at C4-C5 No prevertebral soft tissue widening. The visualized upper lung ulrich are unremarkable. RAD/Cerv Spine 2 or 3 Views IMPRESSION: Degenerative changes, no evidence of acute osseous abnormality is seen. Electronically Signed: Memo Giang MD at 15:00 EDT ,
== END | disposition home or self-care (01) ==
LOC: RAD 13:09
PROVIDERS: PCP Family Medicine Geriatric Medicine; Visit Provider Anesthesiology Pain Medicine
DX: M54.12 Radiculopathy, cervical region (principal)
CPT/HCPCS: 72040

== ENCOUNTER 2021-09-04 17:32 | Emergency (ER) | payer OTHER, SELFPAY ==
[2021-09-04 17:33] VITALS: PULSE 96; RESP 19; TEMP 36.6; O2SAT 98; BMI 28.3
[2021-09-04 17:35] VITALS: BP 182/100
[2021-09-04 17:41] VITALS: BP 186/104; PULSE 99; RESP 20; O2SAT 97
--- NOTE | 2021-09-04 17:51 | CT_ITS ---
STUDY: CT Abdomen And Pelvis W/O Contrast Injection 09/04/2021 6:44 PM REASON FOR EXAM: Female, 60 years old. ABDOMINAL PAIN Pain TECHNIQUE: Transaxial images were obtained without oral contrast, and without intravenous contrast. Individualized dose optimization techniques were used for this CT. COMPARISON: 04.27.17 FINDINGS: The visualized lung bases are unremarkable. The visualized portions of the heart are within normal limits. Normal liver. Normal gallbladder and extrahepatic biliary system. Normal spleen. Normal pancreas. Normal bilateral adrenal glands. Non obstructive 2 mm right renal parenchymal stones. Non obstructive 2 mm left renal parenchymal stones. Left moderate hydronephroureter. Inflammation is seen around the kidney and ureter. An obstructing calcified stone is not identified. 2.3 mm stone in the left side of the urinary bladder. This would suggest passage of a stone. Normal visualized stomach. Normal small intestine. There are multiple colonic diverticula consistent with diverticulosis. There is non-visualization of the appendix. There are calcifications of the abdominal aorta. This is consistent for atherosclerotic disease. There is no abdominal aortic aneurysm. Normal inferior vena cava. Subcentimeter mesenteric lymph nodes. Normal urinary bladder. Normal visualized uterus. There are bilateral tubal ligation clips. Normal abdominal wall. Normal osseous structures. CT/Abdomen/Pelvis without Cont IMPRESSION: (NOT LISTED IN ORDER OF SIGNIFICANCE) Left moderate hydronephroureter. Inflammation is seen around the kidney and ureter. An obstructing calcified stone is not identified. 2.3 mm stone in the left side of the urinary bladder. This would suggest passage of a stone. There are multiple colonic diverticula consistent with diverticulosis. Other findings as above. Electronically Signed: Bernabe Guerrero MD at 18:48 EDT ,
--- NOTE | 2021-09-04 17:53 | EDS_ITS ---
HPI History of Present Illness Chief Complaint: Abd Pain Informant: patient Narrative Narrative: Patient had onset of left-sided abdominal pain about 230 today. She states prior to that she felt fine. She points to the lateral aspect of her abdomen. It did not go into her back or CVA area. However, she did feel as though it was going toward the left lower quadrant for a while. She denies any urinary symptoms. Her states that she had a kidney stone once. She states that she had blood in her urine but they checked and she did not have a kidney stone. She also started meloxicam about a week ago but has not had GI upset with it. She has no trauma. She had not been having any symptoms until this started rather suddenly at 230. Nothing makes it better or worse. PFSH PFSH Medical History Former smoker History of stress test Hypothyroidism Kidney stone Home Medications levothyroxine 50 mcg PO DAILY 02/20/14 [History Last Taken 08/11/16 05:00] paroxetine HCl 10 mg PO DAILY 12/05/20 [History Last Taken Unknown] meloxicam 7.5 mg PO DAILY 09/04/21 [History Last Taken Unknown] ondansetron 4 mg PO Q8H PRN #10 tab 09/04/21 [Rx Last Taken Unknown] oxycodone-acetaminophen [Percocet] 1 tab PO Q6H PRN 3 Days #10 tab 09/04/21 [Rx Last Taken Unknown] tizanidine 4 mg PO DAILY 09/04/21 [History Last Taken Unknown] Allergy/AdvReac Type Severity Reaction Status Date / Time No Known Allergies Allergy Verified 09/04/21 17:35 Family History Mother Diabetes Hypertension Brother Diabetes Hypertension Surgical History H/O tubal ligation Hx of cholecystectomy Social History Smoking Status: Former smoker alcohol intake: current ROS ROS ED Constitutional Constitutional ED: Denies chills or fever(s) ENT ENT ED: Denies rhinorrhea Cardiovascular Cardiovascular: Denies chest pain or palpitations Respiratory/Chest Respiratory/Chest: Denies cough or dyspnea Gastrointestinal Gastrointestinal: Reports abdominal pain and nausea; Denies vomiting Genitourinary Genitourinary ED: Denies dysuria, hematuria or urinary frequency Musculoskeletal Musculoskeletal: Denies back pain Integumentary Denies rash Neurologic Neurologic: Denies headache(s) Psychiatric Psychiatric: Denies anxiety or depression Endocrine Endocrinology: Denies polydipsia or polyuria Allergic/Immunologic Allergic/Immunologic ED: Denies urticaria EXAM Physical Exam Const Vital Signs: 09/04/21 17:33 09/04/21 17:35 09/04/21 17:41 Temperature 98 F Temperature Source Temporal Pulse Rate 96 99 Respiratory Rate 19 H 20 H Blood Pressure 182/100 H 186/104 H Blood Pressure Mean 127 131 Pulse Ox 98 97 Oxygen Delivery Method Room Air Room Air 09/04/21 18:54 Temperature Temperature Source Pulse Rate 120 H Respiratory Rate 20 H Blood Pressure 198/104 H Blood Pressure Mean 135 Pulse Ox 97 Oxygen Delivery Method Room Air Positive well nourished and well developed Constitutional Narrative: Patient is alternating tween standing and sitting and rolling around in bed. She looks uncomfortable. General Appearance ED: well developed; Negative for cyanotic or diaphoretic Eyes General Eye ED: Negative for pale conjunctiva or scleral icterus Neck no JVD Chest Wall inspection of chest normal Resp normal respiratory effort and clear to auscultation bilaterally Effort and Inspection: Negative for pain with movement Auscultation: Negative for rales, rhonchi or wheezes Cardio regular rate and regular rhythm GI normal to inspection, nondistended, normoactive bowel sounds, non-tender and no masses Auscultation: normoactive bowel sounds Back/Spine no CVA tenderness Extremity normal to inspection Neuro Sensorium / Orientation: alert Psych mental status grossly normal Skin no rashes or lesions noted and no wounds Skin Narrative: No vesicles. MDM MDM MDM Narrative Medical decision making narrative: Blood work shows mildly low white count which is nonspecific finding. Potassium is a little bit low but she has no symptoms of this. She states she has had this before and has been told to eat bananas. I will replace some here. Glucose is minimally up. Creatinine is normal. Urinalysis shows some red cells but otherwise clear. CAT scan is indicating likely kidney stone on the left but it looks as though it may have passed already. I checked with the patient. Pain is markedly better. She states she is starting to develop a tingling down in her left lower quadrant area. I will give a little bit of Toradol to see if this helps. Even though the stone may have passed, she still going to have some discomfort in the area. We discussed reasons to return. We also discussed follow-up. Lab Data Attestation: I reviewed the patient's lab results. Labs: Laboratory Results - last 24 hr 09/04/21 09/04/21 09/04/21 18:00 18:00 18:00 WBC 3.3 L RBC 4.64 Hgb 13.9 Hct 41.9 MCV 90.3 MCH 30.0 MCHC 33.2 RDW Std Deviation 42.0 RDW Coeff of Kellee 12.9 Plt Count 332 MPV 10.7 Immature Gran % (Auto) 0.600 Neut % (Auto) 79.7 H Lymph % (Auto) 16.3 L [place] % (Auto) 0.3 Eos % (Auto) 2.5 Baso % (Auto) 0.6 Absolute Neuts (auto) 2.6 Absolute Lymphs (auto) 0.53 L Nucleated RBC % 0 Differential Comment SCANNED Diff Path Review May foll Sodium 139 Potassium 2.9 L Chloride 105 Carbon Dioxide 26.0 Anion Gap 8 BUN 18 Creatinine 1.01 Estim Creat Clear Calc 51.15 Est GFR (MDRD) Af Amer 72 Est GFR (MDRD) Non-Af 59 L BUN/Creatinine Ratio 17.8 Glucose 120 H Calcium 9.6 Urine Color Yellow Urine Clarity Clear Urine pH 6.0 Ur Specific [place] 1.015 Urine Protein 30 H Urine Glucose (UA) Normal Urine Ketones Negative Urine Occult Blood 250 H Urine Nitrite Negative Urine Bilirubin Negative Urine Urobilinogen Normal Ur Leukocyte Esterase Negative Urine RBC 5-10 SEEN Urine WBC 0 SEEN Ur Squamous Epith Cells 0-5 SEEN Urine Bacteria 0 SEEN Urine Mucus 0 SEEN Radiography Diagnostic Testing: Clinical Impression(s) from Imaging Studies Abdomen/Pelvis CT 09/04/21 17:51 IMPRESSION: (NOT LISTED IN ORDER OF SIGNIFICANCE) Left moderate hydronephroureter. Inflammation is seen around the kidney and ureter. An obstructing calcified stone is not identified. 2.3 mm stone in the left side of the urinary bladder. This would suggest passage of a stone. There are multiple colonic diverticula consistent with diverticulosis. Other findings as above. Electronically Signed: Bernabe Guerrero MD at 18:48 EDT Reading Location ID and State: [facility] / [place] , Service support , Discharge Plan Triage Chief Complaint: Abd Pain ED Provider: Sudeep Ly Dx/Rx/DC Orders Clinical Impression: Kidney stone on left side Instructions: ED Kidney Stone w/ Colic Prescriptions: New oxycodone-acetaminophen [Percocet] 5-325 mg tablet 1 tab PO Q6H PRN (Reason: pain) 3 Days Qty: 10 RF: 0 ondansetron 4 mg tablet,disintegrating 4 mg PO Q8H PRN (Reason: nausea and vomiting) Qty: 10 RF: 0 No Action levothyroxine 25 MCG tablet 50 mcg PO DAILY RF: 0 paroxetine HCl 20 mg tablet 10 mg PO DAILY RF: 0 tizanidine 4 mg tablet 4 mg PO DAILY RF: 0 meloxicam 7.5 mg tablet 7.5 mg PO DAILY RF: 0 Primary Care Provider: Siva Torres Chi Referrals: Kristi Barajas MD [STAFF PHYSICIAN] - 3-5 Days Siva Torres Chi, MD [Primary Care Provider] - Disposition Disposition: Home, Self Care
[2021-09-04] MEDS: Ondansetron 4 MG/2 ML Vial IV (18:05)
[2021-09-04] MEDS: Morphine 4 MG/ML Syringe IV (18:05)
[2021-09-04] MEDS: 0.9% Normal Saline 1,000 ML 1000 ML IV (18:07)
[2021-09-04 18:21] LABS: Bacteria 0 SEEN /hpf (None Seen); Mucous, Urine 0 SEEN /hpf (<or=2+); White Blood Cells 0 SEEN /hpf (0-5)
[2021-09-04 18:52] LABS: Anion Gap 8 (5-15); BUN 18 mg/dL (7-18); BUN/Creat Ratio 17.8 RATIO (10-20); Calcium,Total 9.6 mg/dL (8.5-10.1); Chloride 105 mmol/L (98-107); Creatinine, Serum 1.01 mg/dL (0.55-1.02); EST Glomerular Filtration Rate 59 mL/min (>60); Est Glom Filt Rate - Afr Amer 72 mL/min (>60); Estimated Creatinine Clearance 51.15 ml/min; Glucose 120 mg/dL (74-106); Potassium 2.9 mmol/L (3.5-5.1); Sodium Level 139 mmol/L (136-145)
[2021-09-04 18:54] VITALS: BP 198/104; PULSE 120; RESP 20; O2SAT 97
[2021-09-04 19:02] LABS: Color, Urine Yellow (Yellow); Glucose, Dipstick Normal (Normal); Ketone-Dipstick Negative (Negative); Leukocyte Esterase-Dipstick Negative /ul (Negative); Nitrite-Dipstick Negative (Negative); Occult Blood-Urine 250 /ul (Negative); Protein-Dipstick 30 mg/dl (Negative); Specific Gravity, Urine 1.015 (1.002-1.030); Urine Bilirubin Dipstick Negative (Negative); Urine Clarity Clear (Clear); Urine Urobilinogen Normal (Normal)
[2021-09-04 19:10] LABS: Absolute Lymphocyte Count 0.53 X10^3/uL (0.83-4.51); Absolute Neutrophil Count 2.6 X10^3/uL (2.0-7.7); Basophil# 0.02 X10^3/uL; Basophil% 0.6 % (0-1); Eosinophil# 0.08 X10^3/uL; Eosinophils% 2.5 % (0-5); Hematocrit 41.9 % (37-47); Hemoglobin 13.9 g/dL (12.0-15.0); Lymphocyte # 0.53 X10^3/ul (0.83-4.51); Lymphocyte % 16.3 % (19-41); Mean Corp Hgb Conc 33.2 g/dL (32-36); Mean Corpuscular Volume 90.3 fL (81-99); Mean Platelet Vol. 10.7 fl (6.2-12.0); Monocyte# 0.01 X10^3/uL; Monocyte% 0.3 % (0-10); NRBC Flagged by Analyzer 0 % (0-5); Neutrophil # 2.59 X10^3/uL (2.7-7.7); Neutrophil % 79.7 % (47-70); POSITIVE DIFFERENTIAL YES; POSITIVE MORPHOLOGY YES; Platelet Count 332 K/mm3 (150-450); RBC Distribution Width CV 12.9 % (11.6-14.6); Red Blood Count 4.64 M/mm3 (4.2-5.4); White Blood Count 3.3 K/mm3 (4.4-11.0)
[2021-09-04 19:20] LABS: Red Blood Cells-Urine 5-10 SEEN /hpf (0-5); Squamous Epithelial Cells - UA 0-5 SEEN /hpf (5-10)
[2021-09-04 19:49] LABS: Differential Indicated SCAN CRITERIA MET
[2021-09-04 20:01] LABS: Differential Comment SCANNED
[2021-09-04] MEDS: Potassium Chloride Oral Tablet 20 MEQ 40 MEQ PO (20:23)
[2021-09-04 20:28] VITALS: BP 170/67; PULSE 82; RESP 18; O2SAT 96
[2021-09-09 12:46] LABS: Pathologist Review Reviewed
== END 2021-09-04 20:28 | disposition home or self-care (01) ==
PROVIDERS: Emergency Provider Emergency Medicine; PCP Family Medicine Geriatric Medicine; Visit Provider Emergency Medicine
DX: N20.0 Calculus of kidney (principal); Z87.891 Personal history of nicotine dependence; E03.9 Hypothyroidism, unspecified; Z87.442 Personal history of urinary calculi
CPT/HCPCS: 74176; 80048; 81001; 85025; 96361; 96374; 96375; 99283; A4216; J2405

== ENCOUNTER → 2021-09-14 | Outpatient (CLI) | payer OTHER, SELFPAY ==
[2021-09-14 17:38] LABS: Anion Gap 6 (5-15); BUN 15 mg/dL (7-18); BUN/Creat Ratio 19.1 RATIO (10-20); Chloride 103 mmol/L (98-107); Creatinine, Serum 0.79 mg/dL (0.55-1.02); EST Glomerular Filtration Rate 79 mL/min (>60); Est Glom Filt Rate - Afr Amer 96 mL/min (>60); Glucose 89 mg/dL (74-106); Potassium 3.6 mmol/L (3.5-5.1); Sodium Level 137 mmol/L (136-145)
== END | disposition home or self-care (01) ==
LOC: POLAB3 14:10
PROVIDERS: PCP Family Medicine Geriatric Medicine; Visit Provider Family Medicine Geriatric Medicine
DX: E87.6 Hypokalemia (principal)
CPT/HCPCS: 36415; 80048

== ENCOUNTER → 2022-02-02 | Outpatient (CLI) | payer OTHER, SELFPAY ==
[2022-02-02 16:50] LABS: Absolute Lymphocyte Count 2.44 X10^3/uL (0.83-4.51); Absolute Neutrophil Count 3.9 X10^3/uL (2.0-7.7); Basophil# 0.13 X10^3/uL; Basophil% 1.7 % (0-1); Eosinophil# 0.45 X10^3/uL; Hematocrit 40.9 % (37-47); Hemoglobin 13.7 g/dL (12.0-15.0); Lymphocyte # 2.44 X10^3/ul (0.83-4.51); Lymphocyte % 32.4 % (19-41); Mean Corp Hgb Conc 33.5 g/dL (32-36); Mean Corpuscular Hgb 30.8 pg (27.0-32.0); Mean Corpuscular Volume 91.9 fL (81-99); Mean Platelet Vol. 10.8 fl (6.2-12.0); NRBC Flagged by Analyzer 0 % (0-5); Neutrophil % 51.8 % (47-70); Platelet Count 353 K/mm3 (150-450); RBC Distribution Width CV 12.2 % (11.6-14.6); RBC Distribution Width SD 41.3 fl (35.1-43.9); Red Blood Count 4.45 M/mm3 (4.2-5.4); White Blood Count 7.5 K/mm3 (4.4-11.0)
[2022-02-02 17:14] LABS: ALB/GLOB Ratio 0.9 RATIO (0.9-2.4); AST(SGOT) 21 U/L (15-37); Alanine Aminotransfer ALT/SGPT 27 U/L (13-56); Albumin, Serum 3.8 g/dL (3.2-5.0); Alkaline Phosphatase 69 U/L (45-117); Anion Gap 7 (5-15); BUN 16 mg/dL (7-18); Calcium,Total 9.2 mg/dL (8.5-10.1); Chloride 104 mmol/L (98-107); EST Glomerular Filtration Rate 78 mL/min (>60); Est Glom Filt Rate - Afr Amer 94 mL/min (>60); Globulin 4.2 g/dL (2.2-4.2); Glucose 86 mg/dL (74-106); Sodium Level 138 mmol/L (136-145); Thyroid Stim Hormone (TSH) 1.44 uIU/mL (0.358-3.74)
== END | disposition home or self-care (01) ==
LOC: POLAB3 12:46
PROVIDERS: PCP Family Medicine Geriatric Medicine; Visit Provider Family Medicine Geriatric Medicine
DX: I10 Essential (primary) hypertension (principal)
CPT/HCPCS: 36415; 80053; 84443; 85025

== ENCOUNTER → 2022-02-02 | Outpatient (CLI) | payer OTHER, SELFPAY ==
--- NOTE | 2022-02-02 14:14 | CT_ITS ---
STUDY: CT ABDOMEN AND PELVIS WITHOUT CONTRAST REASON FOR EXAM: Female, 61 years old. KIDNEY STONES. 2 month history of right-sided back pain. RADIATION DOSAGE (If Supplied By Facility): CTDIvol = ( 9.77 ) mGy, DLP = ( 471.30 ) mGycm TECHNIQUE: Transaxial images were obtained from the dome of the diaphragm to the symphysis pubis without oral contrast, and without intravenous contrast. Sagittal and coronal images were reconstructed. Individualized dose optimization techniques were used for this CT. COMPARISON: Comparison is made with prior study dated 09/04/2021. FINDINGS: The visualized lung bases are unremarkable. Coronary artery calcification. Normal liver. The patient is status post cholecystectomy. Normal spleen. Normal pancreas. There is hyperplasia of the left adrenal gland. Punctate calculus in the lower pole calyx of the right kidney. Mild degree of right hydronephrosis. Punctate nonobstructive calculi in the lower pole calyx of the left kidney. Mild degree of left hydronephrosis. There is a small hiatal hernia. Normal small intestine. There are multiple colonic diverticula consistent with diverticulosis. The appendix is visualized and appears normal. There is scattered atherosclerotic calcification of the abdominal aorta, without a demonstrated aneurysm. Normal inferior vena cava. Normal retroperitoneum. Normal urinary bladder. There is evidence of bilateral tubal ligation. Calcified phleboliths are seen in the pelvis. Normal abdominal wall. There are mild degenerative changes of the visualized lumbar spine. CT/Abdomen/Pelvis without Cont IMPRESSION: Mild degree of bilateral hydronephrosis without evidence of an ureteral obstruction at this time. Nonobstructive small bilateral intrarenal calculi. Scattered sigmoid diverticula. Electronically Signed: Blake Clemente MD at 14:39 EDT ,
== END | disposition home or self-care (01) ==
LOC: CT 14:13
PROVIDERS: PCP Family Medicine Geriatric Medicine; Referring Provider Family Medicine Geriatric Medicine; Visit Provider Family Medicine Geriatric Medicine
DX: N20.0 Calculus of kidney (principal)
CPT/HCPCS: 74176

== ENCOUNTER → 2022-02-17 | Outpatient (CLI) | payer OTHER, SELFPAY ==
--- NOTE | 2022-02-17 13:02 | BI_ITS ---
MAMMOGRAPHY - BILATERAL SCREENING REASON FOR EXAM: Female, 61 years old. Routine annual screening examination. PERTINENT HISTORY: Non-contributory. TECHNIQUE: Digital bilateral breast emerita (3D mammographic acquisition) in the CC and MLO projections. 2-D mediolateral oblique (MLO) and craniocaudad (CC) views of both breasts were obtained. CAD: Full Field Digital Mammography with Computer Added Detection was performed. COMPARISON: Comparison is made with prior abdomen examination dated 09/09/2014. FINDINGS: Breast Composition: There are scattered areas of fibroglandular density. There are no dominant masses or suspicious calcifications. No other significant abnormalities are identified. There has been no significant change since the prior study. BI/SCRN MAMM (CAD)W/EMERITA BILAT IMPRESSION: Stable bilateral screening mammogram. Yearly follow-up mammogram recommended. (A) ASSESSMENT CATEGORY: BIRADS Category 1: Negative. A letter regarding these results will be sent to the patient by the facility within 30 days. Approximately 10% of breast cancers are not detected by mammography. A normal mammogram should not delay biopsy of a clinically suspicious abnormality. [id number] Electronically Signed: Blake Clemente MD at 13:43 EDT ,
== END | disposition home or self-care (01) ==
LOC: OPBI 13:00
PROVIDERS: PCP Family Medicine Geriatric Medicine; Referring Provider Family Medicine Geriatric Medicine; Visit Provider Family Medicine Geriatric Medicine
DX: Z12.31 Encounter for screening mammogram for malignant neoplasm of breast (principal)
CPT/HCPCS: 77063; 77067

== ENCOUNTER → 2022-08-03 | Outpatient (CLI) | payer OTHER, SELFPAY ==
[2022-08-03 15:29] LABS: Absolute Lymphocyte Count 1.84 X10^3/uL (0.83-4.51); Absolute Neutrophil Count 4.8 X10^3/uL (2.0-7.7); Basophil# 0.12 X10^3/uL; Basophil% 1.5 % (0-1); Eosinophil# 0.51 X10^3/uL; Eosinophils% 6.4 % (0-5); Hematocrit 41.4 % (37-47); Hemoglobin 13.2 g/dL (12.0-15.0); Lymphocyte # 1.84 X10^3/ul (0.83-4.51); Lymphocyte % 23.2 % (19-41); Mean Corp Hgb Conc 31.9 g/dL (32-36); Mean Corpuscular Hgb 29.7 pg (27.0-32.0); Mean Platelet Vol. 10.7 fl (6.2-12.0); Monocyte# 0.69 X10^3/uL; Monocyte% 8.7 % (0-10); NRBC Flagged by Analyzer 0 % (0-5); Neutrophil # 4.75 X10^3/uL (2.7-7.7); Neutrophil % 59.9 % (47-70); Platelet Count 308 K/mm3 (150-450); RBC Distribution Width CV 12.6 % (11.6-14.6); RBC Distribution Width SD 42.7 fl (35.1-43.9); Red Blood Count 4.45 M/mm3 (4.2-5.4); White Blood Count 7.9 K/mm3 (4.4-11.0)
[2022-08-03 16:58] LABS: ALB/GLOB Ratio 1.1 RATIO (0.9-2.4); AST(SGOT) 22 U/L (15-37); Alanine Aminotransfer ALT/SGPT 24 U/L (13-56); Albumin, Serum 4.1 g/dL (3.2-5.0); Alkaline Phosphatase 70 U/L (45-117); Anion Gap 4 (5-15); BUN 18 mg/dL (7-18); BUN/Creat Ratio 23.2 RATIO (10-20); Calcium,Total 9.2 mg/dL (8.5-10.1); Chloride 105 mmol/L (98-107); Creatinine, Serum 0.78 mg/dL (0.55-1.02); EST Glomerular Filtration Rate 80 mL/min (>60); Est Glom Filt Rate - Afr Amer 97 mL/min (>60); Globulin 3.9 g/dL (2.2-4.2); Glucose 88 mg/dL (74-106); Potassium 3.6 mmol/L (3.5-5.1); Sodium Level 137 mmol/L (136-145); Thyroid Stim Hormone (TSH) 1.59 uIU/mL (0.358-3.74)
== END | disposition home or self-care (01) ==
LOC: LAB 14:17
PROVIDERS: PCP Family Medicine Geriatric Medicine; Referring Provider Family Medicine Geriatric Medicine; Visit Provider Family Medicine Geriatric Medicine
DX: R53.83 Other fatigue (principal)
CPT/HCPCS: 36415; 80053; 84443; 85025

== ENCOUNTER → 2022-08-04 | Outpatient (CLI) | payer OTHER, SELFPAY | END | disposition home or self-care (01) | LOC: PSN 13:02 | PROVIDERS: PCP Family Medicine Geriatric Medicine; Referring Provider Family Medicine Geriatric Medicine; Visit Provider Family Medicine Geriatric Medicine | DX: R68.83 Chills (without fever) (principal) | CPT/HCPCS: 87635; 87804; 87807; C9803; U0003; U0005 ==

== ENCOUNTER → 2022-11-02 | Outpatient (CLI) | payer OTHER, SELFPAY ==
--- NOTE | 2022-11-02 14:47 | CT_ITS ---
STUDY: CT ABDOMEN AND PELVIS WITHOUT CONTRAST REASON FOR EXAM: Female, 62 years old. KIDNEY STONE RADIATION DOSAGE (If Supplied By Facility): CTDIvol = ( 10.97 ) mGy, DLP = ( 537.57 ) mGycm TECHNIQUE: Transaxial images were obtained from the dome of the diaphragm to the symphysis pubis without oral contrast, and without intravenous contrast. Sagittal and coronal images were reconstructed. Individualized dose optimization techniques were used for this CT. COMPARISON: 04/27/2017 CT abdomen and pelvis FINDINGS: The visualized lung bases are unremarkable. The visualized portions of the heart are within normal limits. Normal liver. There is non-visualization of the gallbladder, which may be secondary to either contraction or a prior cholecystectomy. Normal spleen. Normal pancreas. Normal bilateral adrenal glands. Minimal punctate central right renal nonobstructing nephrolith. Punctate nonobstructive left renal nephroliths are present. No evidence of ureteral stone is evident. Normal visualized stomach. Normal small intestine. Normal colon. The appendix is visualized and appears normal. There is diffuse atherosclerotic calcification of the abdominal aorta, without a demonstrated aneurysm. Normal inferior vena cava. Normal retroperitoneum. Normal urinary bladder. Normal abdominal wall. There are diffuse degenerative changes of the visualized lumbar spine. CT/Abdomen/Pelvis without Cont IMPRESSION: 1. Left kidney inferior punctate nonobstructing nephroliths with otherwise no evidence of hydronephrosis. Minimal punctate right renal nephrolith is also noted. Otherwise no additional acute intra-abdominal process or focal inflammation. Normal appendix. Electronically Signed: Jorgito Griffiths DO at 15:03 EDT ,
== END | disposition home or self-care (01) ==
PROVIDERS: PCP Family Medicine Geriatric Medicine; Referring Provider Family Medicine Geriatric Medicine; Visit Provider Family Medicine Geriatric Medicine
DX: N20.0 Calculus of kidney (principal)
CPT/HCPCS: 74176; 87086

== ENCOUNTER → 2022-11-04 | Outpatient (CLI) | payer OTHER, SELFPAY | END | disposition home or self-care (01) | PROVIDERS: PCP Family Medicine Geriatric Medicine; Referring Provider Family Medicine Geriatric Medicine; Visit Provider Family Medicine Geriatric Medicine | DX: R68.83 Chills (without fever) (principal) | CPT/HCPCS: 87635; 87804; 87807; C9803 ==

== ENCOUNTER → 2023-02-07 | Outpatient (CLI) | payer OTHER, SELFPAY ==
[2023-02-07 15:04] LABS: Absolute Neutrophil Count 4.8 X10^3/uL (2.0-7.7); Basophil# 0.11 X10^3/uL; Basophil% 1.4 % (0-1); Eosinophil# 0.48 X10^3/uL; Eosinophils% 6.2 % (0-5); Hematocrit 42.5 % (37-47); Hemoglobin 13.7 g/dL (12.0-15.0); Lymphocyte % 23.2 % (19-41); Mean Corp Hgb Conc 32.2 g/dL (32-36); Mean Corpuscular Hgb 29.6 pg (27.0-32.0); Mean Corpuscular Volume 91.8 fL (81-99); Mean Platelet Vol. 10.9 fl (6.2-12.0); Monocyte# 0.58 X10^3/uL; Monocyte% 7.5 % (0-10); NRBC Flagged by Analyzer 0 % (0-5); Neutrophil # 4.77 X10^3/uL (2.7-7.7); Neutrophil % 61.4 % (47-70); Platelet Count 378 K/mm3 (150-450); Red Blood Count 4.63 M/mm3 (4.2-5.4); White Blood Count 7.8 K/mm3 (4.4-11.0)
[2023-02-07 15:41] LABS: ALB/GLOB Ratio 0.9 RATIO (0.9-2.4); AST(SGOT) 21 U/L (15-37); Alanine Aminotransfer ALT/SGPT 25 U/L (13-56); Albumin, Serum 3.8 g/dL (3.2-5.0); Alkaline Phosphatase 83 U/L (45-117); Anion Gap 7 (5-15); BUN 17 mg/dL (7-18); BUN/Creat Ratio 19.2 RATIO (10-20); Calcium,Total 9.1 mg/dL (8.5-10.1); Chloride 105 mmol/L (98-107); Creatinine, Serum 0.89 mg/dL (0.55-1.02); EST Glomerular Filtration Rate 69 mL/min (>60); Est Glom Filt Rate - Afr Amer 83 mL/min (>60); Globulin 4.4 g/dL (2.2-4.2); Glucose 105 mg/dL (74-106); Potassium 3.8 mmol/L (3.5-5.1); Protein, Total 8.2 g/dL (6.4-8.2); Sodium Level 137 mmol/L (136-145); Thyroid Stim Hormone (TSH) 2.88 uIU/mL (0.358-3.74)
== END | disposition home or self-care (01) ==
LOC: POLAB3 13:05
PROVIDERS: PCP Family Medicine Geriatric Medicine; Visit Provider Family Medicine Geriatric Medicine
DX: R53.83 Other fatigue (principal)
CPT/HCPCS: 36415; 80053; 84443; 85025

== ENCOUNTER → 2023-08-09 | Outpatient (CLI) | payer MEDICAID, SELFPAY ==
[2023-08-09 14:34] LABS: Absolute Lymphocyte Count 2.32 X10^3/uL (0.83-4.51); Absolute Neutrophil Count 4.7 X10^3/uL (2.0-7.7); Basophil% 1.2 % (0-1); Eosinophil# 0.45 X10^3/uL; Eosinophils% 5.5 % (0-5); Hematocrit 38.8 % (37-47); Hemoglobin 12.8 g/dL (12.0-15.0); Lymphocyte # 2.32 X10^3/ul (0.83-4.51); Lymphocyte % 28.4 % (19-41); Mean Corpuscular Hgb 29.9 pg (27.0-32.0); Mean Corpuscular Volume 90.7 fL (81-99); Mean Platelet Vol. 10.9 fl (6.2-12.0); Monocyte# 0.61 X10^3/uL; Monocyte% 7.5 % (0-10); NRBC Flagged by Analyzer 0 % (0-5); Neutrophil # 4.67 X10^3/uL (2.7-7.7); Neutrophil % 57.2 % (47-70); Platelet Count 337 K/mm3 (150-450); RBC Distribution Width CV 12.9 % (11.6-14.6); RBC Distribution Width SD 42.5 fl (35.1-43.9); Red Blood Count 4.28 M/mm3 (4.2-5.4); White Blood Count 8.2 K/mm3 (4.4-11.0)
[2023-08-09 14:58] LABS: ALB/GLOB Ratio 0.8 RATIO (0.9-2.4); AST(SGOT) 22 U/L (15-37); Alanine Aminotransfer ALT/SGPT 26 U/L (13-56); Albumin, Serum 3.6 g/dL (3.2-5.0); Alkaline Phosphatase 71 U/L (45-117); Anion Gap 7 (5-15); BUN 16 mg/dL (7-18); BUN/Creat Ratio 19.5 RATIO (10-20); Calcium,Total 9.2 mg/dL (8.5-10.1); Chloride 104 mmol/L (98-107); Cholesterol 250 mg/dL (200); Creatinine, Serum 0.82 mg/dL (0.55-1.02); EST Glomerular Filtration Rate 75 mL/min (>60); Est Glom Filt Rate - Afr Amer 91 mL/min (>60); Globulin 4.5 g/dL (2.2-4.2); Glucose 103 mg/dL (74-106); High Density Lipoprotein 55 mg/dL; Potassium 3.7 mmol/L (3.5-5.1); Protein, Total 8.1 g/dL (6.4-8.2); Sodium Level 137 mmol/L (136-145); Thyroid Stim Hormone (TSH) 1.53 uIU/mL (0.358-3.74); Triglycerides 122 mg/dL; Very Low Density Lipoprotein 24 mg/dL (5-40)
== END | disposition home or self-care (01) ==
LOC: POLAB3 13:02
PROVIDERS: PCP Family Medicine Geriatric Medicine; Visit Provider Family Medicine Geriatric Medicine
DX: R53.83 Other fatigue (principal); E78.5 Hyperlipidemia, unspecified
CPT/HCPCS: 36415; 80053; 80061; 84443; 85025

== ENCOUNTER → 2023-08-16 | Outpatient (CLI) | payer MEDICAID, SELFPAY ==
--- NOTE | 2023-08-16 13:09 | US_ITS ---
STUDY: THYROID ULTRASOUND REASON FOR EXAM: Female, 62 years old. History of thyroid nodule. TECHNIQUE: Ultrasound evaluation of the thyroid was performed with real-time and static reese-scale imaging. COMPARISON: Comparison is made with prior study dated February 04, 2021. FINDINGS: RIGHT LOBE: The right lobe of the thyroid gland is enlarged and measures 7.5 cm x 3.7 cm x 2.5 cm. There is a heterogeneous echotexture. There are no demonstrated solid, cystic or complex lesions. LEFT LOBE: The left lobe of the thyroid gland is enlarged and measures 5.5 cm x 2.3 cm x 2 cm. There is a heterogeneous echotexture. There are no demonstrated solid, cystic or complex lesions. Previously seen 6 mm x 6 mm hypoechoic solid nodule in the lateral midportion of the left lobe of the thyroid is not seen at this time. ISTHMUS: The isthmus measures 1.9 mm. The regional lymph nodes are normal. US/Thyroid IMPRESSION: Enlarged heterogeneous appearance of both lobes of thyroid more prominent on the right side. No focal nodule is seen. Electronically Signed: Blake Clemente MD at 14:50 EDT ,
== END | disposition home or self-care (01) ==
PROVIDERS: PCP Family Medicine Geriatric Medicine; Referring Provider Family Medicine Geriatric Medicine; Visit Provider Family Medicine Geriatric Medicine
DX: R06.2 Wheezing (principal); E04.1 Nontoxic single thyroid nodule
CPT/HCPCS: 76536; 94060

== ENCOUNTER → 2024-02-13 | Outpatient (CLI) | payer OTHER, SELFPAY ==
[2024-02-13 13:58] LABS: Absolute Lymphocyte Count 2.34 X10^3/uL (0.83-4.51); Absolute Neutrophil Count 4.6 X10^3/uL (2.0-7.7); Basophil# 0.12 X10^3/uL; Basophil% 1.5 % (0-1); Eosinophil# 0.49 X10^3/uL; Hematocrit 41.1 % (37-47); Hemoglobin 13.2 g/dL (12.0-15.0); Lymphocyte # 2.34 X10^3/ul (0.83-4.51); Lymphocyte % 28.7 % (19-41); Mean Corp Hgb Conc 32.1 g/dL (32-36); Mean Corpuscular Hgb 29.9 pg (27.0-32.0); Mean Platelet Vol. 10.3 fl (6.2-12.0); Monocyte# 0.61 X10^3/uL; Monocyte% 7.5 % (0-10); NRBC Flagged by Analyzer 0 % (0-5); Neutrophil # 4.57 X10^3/uL (2.7-7.7); Neutrophil % 56.2 % (47-70); Platelet Count 332 K/mm3 (150-450); RBC Distribution Width CV 12.2 % (11.6-14.6); Red Blood Count 4.42 M/mm3 (4.2-5.4); White Blood Count 8.1 K/mm3 (4.4-11.0)
[2024-02-13 14:31] LABS: ALB/GLOB Ratio 1.1 RATIO (0.9-2.4); AST(SGOT) 22 U/L (15-37); Alanine Aminotransfer ALT/SGPT 25 U/L (13-56); Albumin, Serum 3.9 g/dL (3.2-5.0); Alkaline Phosphatase 70 U/L (45-117); Anion Gap 7 (5-15); BUN 17 mg/dL (7-18); BUN/Creat Ratio 22.7 RATIO (10-20); Calcium,Total 9.3 mg/dL (8.5-10.1); Chloride 106 mmol/L (98-107); Cholesterol 240 mg/dL (200); Creatinine, Serum 0.75 mg/dL (0.55-1.02); EST Glomerular Filtration Rate 83 mL/min (>60); Est Glom Filt Rate - Afr Amer 100 mL/min (>60); Globulin 3.7 g/dL (2.2-4.2); Glucose 111 mg/dL (74-106); High Density Lipoprotein 56 mg/dL; Potassium 3.6 mmol/L (3.5-5.1); Protein, Total 7.6 g/dL (6.4-8.2); Sodium Level 137 mmol/L (136-145); Thyroid Stim Hormone (TSH) 0.847 uIU/mL (0.358-3.740); Triglycerides 137 mg/dL; Very Low Density Lipoprotein 27 mg/dL (5-40)
== END | disposition home or self-care (01) ==
LOC: POLAB3 13:43
PROVIDERS: PCP Family Medicine Geriatric Medicine; Visit Provider Family Medicine Geriatric Medicine
DX: R53.83 Other fatigue (principal); E78.5 Hyperlipidemia, unspecified
CPT/HCPCS: 36415; 80053; 80061; 84443; 85025

== ENCOUNTER → 2024-02-21 | Outpatient (CLI) | payer OTHER, SELFPAY ==
--- NOTE | 2024-02-21 12:49 | BI_ITS ---
MAMMOGRAPHY - BILATERAL SCREENING 3-D TOMOSYNTHESIS REASON FOR EXAM: Female, 63 years old. SCREENING PERTINENT HISTORY: No significant family history. TECHNIQUE: 2-D mammograms and 3-D Tomosynthesis of the breast (s) were performed. CAD was performed. COMPARISON: 02/17/2022 FINDINGS: The breast composition is composed of scattered fibroglandular density. Scattered benign calcifications are seen. No dense spiculated masses or suspicious microcalcifications are identified. No architectural distortion is identified. There is no skin thickening or retraction. There has been no significant change since the prior study. BI/SCRN MAMM (CAD)W/EMERITA BILAT IMPRESSION: No mammographic signs of malignancy. Routine yearly mammograms recommended. ASSESSMENT CATEGORY: BIRADS Category 1: Negative. A letter regarding these results will be sent to the patient by the facility within 30 days. FOLLOW UP RECOMMENDATION: Yearly follow up mammogram recommended. (A) Approximately 10% of breast cancers are not detected by mammography. A normal mammogram should not delay biopsy of a clinically suspicious abnormality. Electronically Signed: Aldair Temple MD at 14:18 EDT ,
== END | disposition home or self-care (01) ==
LOC: OPBI 12:48
PROVIDERS: PCP Family Medicine Geriatric Medicine; Referring Provider Family Medicine Geriatric Medicine; Visit Provider Family Medicine Geriatric Medicine
DX: Z12.31 Encounter for screening mammogram for malignant neoplasm of breast (principal)
CPT/HCPCS: 77063; 77067

== ENCOUNTER → 2024-08-15 | Outpatient (CLI) | payer BC, SELFPAY ==
[2024-08-15 15:22] LABS: Absolute Lymphocyte Count 2.84 X10^3/uL (0.83-4.51); Absolute Neutrophil Count 4.8 X10^3/uL (2.0-7.7); Basophil# 0.13 X10^3/uL; Basophil% 1.5 % (0-1); Eosinophil# 0.41 X10^3/uL; Eosinophils% 4.6 % (0-5); Hematocrit 39.7 % (37-47); Hemoglobin 13.2 g/dL (12.0-15.0); Lymphocyte # 2.84 X10^3/ul (0.83-4.51); Lymphocyte % 32.2 % (19-41); Mean Corp Hgb Conc 33.2 g/dL (32-36); Mean Corpuscular Hgb 30.1 pg (27.0-32.0); Mean Corpuscular Volume 90.6 fL (81-99); Mean Platelet Vol. 10.5 fl (6.2-12.0); Monocyte# 0.66 X10^3/uL; Monocyte% 7.5 % (0-10); NRBC Flagged by Analyzer 0 % (0-5); Neutrophil # 4.77 X10^3/uL (2.7-7.7); Platelet Count 327 K/mm3 (150-450); RBC Distribution Width CV 12.8 % (11.6-14.6); RBC Distribution Width SD 42.5 fl (35.1-43.9); Red Blood Count 4.38 M/mm3 (4.2-5.4); White Blood Count 8.8 K/mm3 (4.4-11.0)
[2024-08-15 16:08] LABS: ALB/GLOB Ratio 1.2 RATIO (0.9-2.4); AST(SGOT) 19 U/L (<=31); Alanine Aminotransfer ALT/SGPT 14 U/L (<=34); Albumin, Serum 4.2 g/dL (3.4-4.8); Alkaline Phosphatase 72 U/L (35-104); Anion Gap 12 (5-15); BUN 15 mg/dL (4-19); BUN/Creat Ratio 19.3 RATIO (10-20); Calcium,Total 9.6 mg/dL (7.6-11.0); Chloride 101 mmol/L (98-108); Creatinine, Serum 0.77 mg/dL (0.70-1.20); EST Glomerular Filtration Rate 86 (>60); Globulin 3.5 g/dL (2.2-4.2); Glucose 98 mg/dL (70-99); Potassium 3.7 mmol/L (3.3-5.1); Protein, Total 7.7 g/dL (5.9-8.4); Sodium Level 137 mmol/L (133-145); Total Bilirubin 0.29 mg/dL (0.00-1.30)
== END | disposition home or self-care (01) ==
LOC: LAB 13:47
PROVIDERS: PCP Family Medicine Geriatric Medicine; Referring Provider Family Medicine Geriatric Medicine; Visit Provider Family Medicine Geriatric Medicine
DX: R53.83 Other fatigue (principal)
CPT/HCPCS: 36415; 80053; 84443; 85025

== ENCOUNTER → 2025-02-13 | Outpatient (CLI) | payer BC, SELFPAY ==
[2025-02-13 14:09] LABS: Hematocrit 39.2 % (37-47); Hemoglobin 12.9 g/dL (12.0-15.0); Immature Granulocytes Count 0.020 X10^3/uL (0.0-0.0); Mean Corp Hgb Conc 32.9 g/dL (32-36); Mean Corpuscular Volume 90.3 fL (81-99); Mean Platelet Vol. 10.3 fl (6.2-12.0); NRBC Flagged by Analyzer 0 % (0-5); Platelet Count 335 K/mm3 (150-450); RBC Distribution Width CV 12.6 % (11.6-14.6); RBC Distribution Width SD 42.1 fl (35.1-43.9); Red Blood Count 4.34 M/mm3 (4.2-5.4); White Blood Count 8.4 K/mm3 (4.4-11.0)
[2025-02-13 14:43] LABS: AST(SGOT) 24 U/L (<=31); Alanine Aminotransfer ALT/SGPT 16 U/L (<=34); Albumin, Serum 4.4 g/dL (3.4-4.8); Alkaline Phosphatase 72 U/L (35-104); Anion Gap 12 (5-15); BUN 16 mg/dL (4-19); BUN/Creat Ratio 20.6 RATIO (10-20); Calcium,Total 9.3 mg/dL (7.6-11.0); Carbon Dioxide 24.8 mmol/L (21.0-32.0); Chloride 103 mmol/L (98-108); Globulin 3.4 g/dL (2.2-4.2); Glucose 112 mg/dL (70-99); Potassium 3.7 mmol/L (3.3-5.1)
[2025-02-13 21:55] LABS: Xtra Tube Kwok EXTRA TUBE
== END | disposition home or self-care (01) ==
LOC: POLAB3 13:55
PROVIDERS: PCP Family Medicine Geriatric Medicine; Visit Provider Family Medicine Geriatric Medicine
DX: R53.83 Other fatigue (principal)
CPT/HCPCS: 36415; 80053; 84443; 85025